=== PATIENT | male | born 1975 | race Caucasian/White ===

== ENCOUNTER 2022-09-14 10:04 | Emergency (ER) | payer OTHER ==
[2022-09-14] MEDS ORDERED: Lidocaine 1% with EPINEPHrine 1:100,000 50 ML MDV SUBCUT ONE (11:02)
[2022-09-14] MEDS ORDERED: Diphtheria,Pertussis(Acell),Tetanus Vaccine 0.5 ML Syringe IM ONE (11:02)
[2022-09-14] MEDS ORDERED: ceFAZolin 1 GM Vial IM ONE (11:03)
[2022-09-14] MEDS ORDERED: Bacitracin Oint 1 GM U/D Packet TOP ONE (11:04)
== END 2022-09-14 12:24 | disposition home or self-care (01) ==
LOC: JP.ED 10:04
DX: S81.012A Laceration without foreign body, left knee, initial encounter (principal); F17.210 Nicotine dependence, cigarettes, uncomplicated; Z23 Encounter for immunization; Z88.0 Allergy status to penicillin; W29.3XXA Contact with powered garden and outdoor hand tools and machinery, initial encounter
CPT/HCPCS: 12002; 90471; 90715; 96372; 99282; 99282-25; J0690